=== PATIENT | female | born 1990 | race African-American/Black ===

== ENCOUNTER 2017-01-09 11:14 | Emergency (ER) | payer OTHER ==
[~2017-01-09] VITALS: Ht 165.1 cm; Wt 180.0 kg
[2017-01-09] MEDS ORDERED: NAPROSYN500 MG PO (14:47)
[2017-01-09] MEDS ORDERED: FLEXERIL PO (14:47)
[2017-01-09 15:00] VITALS: BP 151/105
== END 2017-01-09 15:16 | disposition home or self-care (01) | DRG 552 ==
LOC: ED 11:14
DX: M47.816 Spondylosis without myelopathy or radiculopathy, lumbar region (principal); F17.210 Nicotine dependence, cigarettes, uncomplicated; R07.9 Chest pain, unspecified

== ENCOUNTER 2017-01-12 00:49 | Emergency (ER) | payer OTHER ==
[~2017-01-12] VITALS: Ht 165.1 cm; Wt 200.0 kg
[~2017-01-12 00:49] MED LIST: FLEXERIL PO; NAPROSYN500 MG PO
[2017-01-12 01:37] LABS: HEMATOCRIT 32.5 % (37.0-47.0); HEMOGLOBIN 9.8 g/dl (12.0-16.0); IMMATURE GRANULOCYTES 0.2 % (0.0-1.0); MEAN CELL VOLUME 75.1 fL CALC (80.0-100.0); MEAN CORPUSCULAR HGB 22.6 pG CALC (26.0-32.0); MEAN CORPUSCULAR HGB CONC 30.2 g/L CALC (32.0-36.0); NEUT# 2.53 thou/uL (2.00-7.15); RED BLOOD COUNT 4.33 mill/uL (4.20-5.60); RED CELL DISTRI WIDTH 16.5 % (11.5-15.5)
[2017-01-12 01:46] LABS: ALBUMIN 3.6 g/dL (3.2-5.0); ALKALINE PHOSPHATASE 77 u/l (38-126); AMYLASE 79 u/l (30-110); ANION GAP 13 (6-22 (CALC)); BILIRUBIN, TOTAL 0.3 mg/dL (0.0-1.4); BUN 17 mg/dL (7-17); BUN/CREATININE RATIO 16 (12-20 (CALC)); CALCIUM 8.7 mg/dL (8.4-10.2); CARBON DIOXIDE 27 mmol/l (22-30); CHLORIDE 104 mmol/l (95-108); CREATININE 1.1 mg/dL (0.5-1.0); GFR > 60 ML/MIN (>=60 (CALC)); GFR FOR AFR.AMER. > 60 ML/MIN (>=60 (CALC)); GLUCOSE 89 mg/dL (65-105); LIPASE 88 u/l (23-300); POTASSIUM 4.5 mmol/l (3.5-5.1); SGOT/AST 28 u/l (14-36); SGPT/ALT 25 u/l (9-52); SODIUM 141 mmol/l (137-146); TOTAL PROTEIN 7.6 g/dL (6.3-8.2)
[2017-01-12 01:58] LABS: MYOGLOBIN 22 ng/mL (0 - 62)
[2017-01-12 02:40] LABS: URINE BILIRUBIN - DIPSTICK NEGATIVE (NEGATIVE); URINE BLOOD DIPSTICK NEGATIVE (NEGATIVE); URINE CLARITY SLIGHT CLOUDY; URINE COLOR YELLOW; URINE GLUCOSE - DIPSTICK NEGATIVE (NEGATIVE); URINE KETONE NEGATIVE (NEGATIVE); URINE LEUK ESTERASE NEGATIVE (NEGATIVE); URINE NITRITE - DIPSTICK NEGATIVE (Negative); URINE PROTEIN - DIPSTICK NEGATIVE (NEG-TRACE); URINE SPECIFIC GRAVITY 1.025; URINE UROBILINOGEN - DIPSTICK 0.2 E.U./dL (0.2)
[2017-01-12 02:49] VITALS: BP 124/63
== END 2017-01-12 02:50 | disposition home or self-care (01) | DRG 313 ==
LOC: ED 00:49
PROVIDERS: Emergency Medicine
DX: R07.89 Other chest pain (principal); F17.200 Nicotine dependence, unspecified, uncomplicated

== ENCOUNTER 2017-03-11 15:00 | Emergency (ER) | payer OTHER ==
[~2017-03-11] VITALS: Ht 165.1 cm; Wt 180.0 kg
[2017-03-11] MEDS ORDERED: FLEXERIL PO (17:41)
[2017-03-11] MEDS ORDERED: ULTRAM50 M1 PO (17:41)
[2017-03-11 17:45] VITALS: BP 129/74
== END 2017-03-11 17:45 | disposition home or self-care (01) | DRG 563 ==
LOC: ED 15:00
DX: S43.402A Unspecified sprain of left shoulder joint, initial encounter (principal); M25.512 Pain in left shoulder

== ENCOUNTER 2017-05-15 07:13 | Emergency (ER) | payer OTHER ==
[~2017-05-15] VITALS: Ht 165.1 cm; Wt 150.0 kg
[~2017-05-15 07:13] MED LIST changes: +ULTRAM50 M1 PO
[2017-05-15] MEDS ORDERED: MOTRIN800 MG PO (07:42)
[2017-05-15 07:58] VITALS: BP 118/70
== END 2017-05-15 08:02 | disposition home or self-care (01) | DRG 153 ==
LOC: ED 07:13
DX: J02.9 Acute pharyngitis, unspecified (principal)
CPT/HCPCS: J0561

== ENCOUNTER 2017-05-17 14:35 | Emergency (ER) | payer OTHER ==
[~2017-05-17] VITALS: Ht 165.1 cm; Wt 150.0 kg
[~2017-05-17 14:35] MED LIST changes: +MOTRIN800 MG PO
[2017-05-17 16:26] LABS: HEMATOCRIT 34.4 % (37.0-47.0); HEMOGLOBIN 10.5 g/dl (12.0-16.0); IMMATURE GRANULOCYTES 0.3 % (0.0-1.0); MEAN CELL VOLUME 76.6 fL CALC (80.0-100.0); MEAN CORPUSCULAR HGB 23.4 pG CALC (26.0-32.0); MEAN CORPUSCULAR HGB CONC 30.5 g/L CALC (32.0-36.0); NEUT# 4.53 thou/uL (2.00-7.15); RED BLOOD COUNT 4.49 mill/uL (4.20-5.60); RED CELL DISTRI WIDTH 17.6 % (11.5-15.5)
[2017-05-17 17:41] LABS: ALBUMIN 3.5 g/dL (3.2-5.0); ALKALINE PHOSPHATASE 75 u/l (38-126); ANION GAP 14 (6-22 (CALC)); BILIRUBIN, TOTAL 0.2 mg/dL (0.0-1.4); BUN 10 mg/dL (7-17); BUN/CREATININE RATIO 12 (12-20 (CALC)); CALCIUM 8.9 mg/dL (8.4-10.2); CARBON DIOXIDE 29 mmol/l (22-30); CHLORIDE 102 mmol/l (95-108); CREATININE 0.9 mg/dL (0.5-1.0); GFR > 60 ML/MIN (>=60 (CALC)); GFR FOR AFR.AMER. > 60 ML/MIN (>=60 (CALC)); GLUCOSE 86 mg/dL (65-105); POTASSIUM 4.3 mmol/l (3.5-5.1); SGOT/AST 21 u/l (14-36); SGPT/ALT 37 u/l (9-52); SODIUM 141 mmol/l (137-146); TOTAL PROTEIN 7.1 g/dL (6.3-8.2)
[2017-05-17] MEDS ORDERED: AMOX/K CLAV875 M1 PO (18:30)
[2017-05-17 18:55] VITALS: BP 126/72
== END 2017-05-17 19:03 | disposition home or self-care (01) | DRG 153 ==
LOC: ED 14:35
PROVIDERS: Emergency Medicine
DX: J02.0 Streptococcal pharyngitis (principal); R50.9 Fever, unspecified

== ENCOUNTER 2017-05-18 19:44 | Emergency (ER) | payer OTHER ==
[~2017-05-18] VITALS: Ht 165.1 cm; Wt 165.8 kg
[~2017-05-18 19:44] MED LIST changes: +AMOX/K CLAV875 M1 PO
[2017-05-18 21:00] VITALS: BP 139/84
== END 2017-05-18 21:00 | disposition home or self-care (01) | DRG 153 ==
LOC: ED 19:44
DX: J02.9 Acute pharyngitis, unspecified (principal); F17.210 Nicotine dependence, cigarettes, uncomplicated

== ENCOUNTER 2017-05-20 18:30 | Emergency (ER) | payer OTHER ==
[~2017-05-20] VITALS: Ht 165.1 cm; Wt 163.6 kg
[2017-05-20 19:27] LABS: HEMATOCRIT 37.4 % (37.0-47.0); HEMOGLOBIN 11.3 g/dl (12.0-16.0); IMMATURE GRANULOCYTES 0.6 % (0.0-1.0); MEAN CELL VOLUME 75.4 fL CALC (80.0-100.0); MEAN CORPUSCULAR HGB 22.8 pG CALC (26.0-32.0); MEAN CORPUSCULAR HGB CONC 30.2 g/L CALC (32.0-36.0); NEUT# 4.83 thou/uL (2.00-7.15); RED BLOOD COUNT 4.96 mill/uL (4.20-5.60); RED CELL DISTRI WIDTH 17.2 % (11.5-15.5)
[2017-05-20 19:59] LABS: ALBUMIN 3.8 g/dL (3.2-5.0); ALKALINE PHOSPHATASE 73 u/l (38-126); ANION GAP 15 (6-22 (CALC)); BILIRUBIN, TOTAL 0.4 mg/dL (0.0-1.4); BUN 11 mg/dL (7-17); BUN/CREATININE RATIO 13 (12-20 (CALC)); CARBON DIOXIDE 28 mmol/l (22-30); CHLORIDE 101 mmol/l (95-108); CREATININE 0.8 mg/dL (0.5-1.0); GFR > 60 ML/MIN (>=60 (CALC)); GFR FOR AFR.AMER. > 60 ML/MIN (>=60 (CALC)); GLUCOSE 88 mg/dL (65-105); POTASSIUM 3.8 mmol/l (3.5-5.1); SGOT/AST 20 u/l (14-36); SGPT/ALT 41 u/l (9-52); SODIUM 140 mmol/l (137-146); TOTAL PROTEIN 7.6 g/dL (6.3-8.2)
[2017-05-20] MEDS ORDERED: CLEOCIN300 MG PO (23:38)
[2017-05-21 00:05] VITALS: BP 151/84
== END 2017-05-21 00:05 | disposition home or self-care (01) | DRG 153 ==
LOC: ED 18:30
PROVIDERS: Emergency Medicine
DX: J03.00 Acute streptococcal tonsillitis, unspecified (principal); F17.210 Nicotine dependence, cigarettes, uncomplicated

== ENCOUNTER 2017-07-25 18:34 | Emergency (ER) | payer SELFPAY ==
[~2017-07-25] VITALS: Ht 165.1 cm; Wt 146.4 kg
[~2017-07-25 18:34] MED LIST changes: +CLEOCIN300 MG PO
[2017-07-25] MEDS ORDERED: ULTRAM50 M1 PO (20:16)
[2017-07-25 20:30] VITALS: BP 138/78
== END 2017-07-25 20:30 | disposition home or self-care (01) | DRG 563 ==
LOC: ED 18:34
DX: S43.402A Unspecified sprain of left shoulder joint, initial encounter (principal); S93.602A Unspecified sprain of left foot, initial encounter; F17.210 Nicotine dependence, cigarettes, uncomplicated; X58.XXXA Exposure to other specified factors, initial encounter

== ENCOUNTER 2017-09-09 23:01 | Emergency (ER) | payer SELFPAY ==
[~2017-09-09] VITALS: Ht 165.1 cm; Wt 156.2 kg
[~2017-09-09 23:01] MED LIST changes: +AMOXICILLIN500 MG PO
[2017-09-10 00:26] VITALS: BP 131/71
== END 2017-09-10 00:26 | disposition home or self-care (01) | DRG 153 ==
LOC: ED 23:01
DX: J03.90 Acute tonsillitis, unspecified (principal); F17.210 Nicotine dependence, cigarettes, uncomplicated

== ENCOUNTER 2017-10-31 15:02 | Emergency (ER) | payer SELFPAY ==
[~2017-10-31] VITALS: Ht 165.1 cm; Wt 170.0 kg
[2017-10-31 15:36] LABS: INFLUENZA A NONE DETECTED (NONE DETECT); INFLUENZA B NONE DETECTED (NONE DETECT)
[2017-10-31 16:43] LABS: HEMOGLOBIN 10.4 g/dl (12.0-16.0); IMMATURE GRANULOCYTES 0.2 % (0.0-1.0); MEAN CORPUSCULAR HGB 23.9 pG CALC (26.0-32.0); MEAN CORPUSCULAR HGB CONC 30.6 g/L CALC (32.0-36.0); NEUT# 2.63 thou/uL (2.00-7.15); RED BLOOD COUNT 4.36 mill/uL (4.20-5.60); RED CELL DISTRI WIDTH 17.2 % (11.5-15.5)
[2017-10-31 16:58] LABS: ALKALINE PHOSPHATASE 90 u/l (38-126); ANION GAP 17 (6-22 (CALC)); BILIRUBIN, TOTAL 0.2 mg/dL (0.0-1.4); BUN 12 mg/dL (7-17); BUN/CREATININE RATIO 12 (12-20 (CALC)); CARBON DIOXIDE 25 mmol/l (22-30); CHLORIDE 105 mmol/l (95-108); GFR > 60 ML/MIN (>=60 (CALC)); GFR FOR AFR.AMER. > 60 ML/MIN (>=60 (CALC)); LIPASE 115 u/l (23-300); POTASSIUM 4.6 mmol/l (3.5-5.1); SGOT/AST 20 u/l (14-36); SGPT/ALT 24 u/l (9-52); SODIUM 143 mmol/l (137-146); TOTAL PROTEIN 7.5 g/dL (6.3-8.2)
[2017-10-31 18:42] VITALS: BP 120/74
== END 2017-10-31 18:45 | disposition home or self-care (01) | DRG 103 ==
LOC: ED 15:02
PROVIDERS: Family Medicine
DX: R51 Headache (principal); F17.200 Nicotine dependence, unspecified, uncomplicated; R10.9 Unspecified abdominal pain; R11.0 Nausea; R61 Generalized hyperhidrosis

== ENCOUNTER 2017-12-02 18:46 | Emergency (ER) | payer SELFPAY ==
[~2017-12-02] VITALS: Ht 165.1 cm; Wt 158.4 kg
[2017-12-02 19:47] VITALS: BP 145/85
[2017-12-02] MEDS ORDERED: MEDDOSEPAK PO (19:50)
== END 2017-12-02 20:05 | disposition home or self-care (01) | DRG 607 ==
LOC: ED 18:46
DX: L23.9 Allergic contact dermatitis, unspecified cause (principal); L29.9 Pruritus, unspecified; R11.0 Nausea; R50.9 Fever, unspecified

== ENCOUNTER 2018-02-01 08:16 | Emergency (ER) | payer SELFPAY ==
[~2018-02-01] VITALS: Ht 165.1 cm; Wt 170.0 kg
[~2018-02-01 08:16] MED LIST changes: +MEDDOSEPAK PO
[2018-02-01 09:17] LABS: HEMATOCRIT 34.6 % (37.0-47.0); HEMOGLOBIN 10.5 g/dl (12.0-16.0); IMMATURE GRANULOCYTES 0.2 % (0.0-1.0); MEAN CELL VOLUME 78.3 fL CALC (80.0-100.0); MEAN CORPUSCULAR HGB 23.8 pG CALC (26.0-32.0); MEAN CORPUSCULAR HGB CONC 30.3 g/L CALC (32.0-36.0); NEUT# 2.98 thou/uL (2.00-7.15); RED BLOOD COUNT 4.42 mill/uL (4.20-5.60); RED CELL DISTRI WIDTH 15.5 % (11.5-15.5)
[2018-02-01 09:42] LABS: ANION GAP 14 (6-22 (CALC)); BUN 11 mg/dL (7-17); BUN/CREATININE RATIO 12 (12-20 (CALC)); CARBON DIOXIDE 27 mmol/l (22-30); CHLORIDE 104 mmol/l (95-108); CREATININE 0.9 mg/dL (0.5-1.0); GFR > 60 ML/MIN (>=60 (CALC)); GFR FOR AFR.AMER. > 60 ML/MIN (>=60 (CALC)); POTASSIUM 3.9 mmol/l (3.5-5.1); SODIUM 141 mmol/l (137-146)
[2018-02-01 10:01] VITALS: BP 141/87
== END 2018-02-01 10:08 | disposition home or self-care (01) | DRG 93 ==
LOC: ED 08:16
PROVIDERS: Family Medicine
DX: R20.2 Paresthesia of skin (principal); F17.210 Nicotine dependence, cigarettes, uncomplicated

== ENCOUNTER 2018-02-02 17:31 | Emergency (ER) | payer SELFPAY ==
[~2018-02-02] VITALS: Ht 165.1 cm; Wt 160.0 kg
[2018-02-02 18:14] VITALS: BP 126/64
== END 2018-02-02 18:14 | disposition home or self-care (01) | DRG 880 ==
LOC: ED 17:31
DX: F41.9 Anxiety disorder, unspecified (principal); F17.290 Nicotine dependence, other tobacco product, uncomplicated

== ENCOUNTER 2018-05-12 00:13 | Emergency (ER) | payer OTHER ==
[~2018-05-12] VITALS: Ht 165.1 cm; Wt 168.0 kg
[2018-05-12 01:49] VITALS: BP 137/86
== END 2018-05-12 01:53 | disposition home or self-care (01) | DRG 179 ==
LOC: ED 00:13
DX: R76.11 Nonspecific reaction to tuberculin skin test without active tuberculosis (principal); F17.210 Nicotine dependence, cigarettes, uncomplicated

== ENCOUNTER 2018-08-09 22:05 | Emergency (ER) | payer SELFPAY ==
[~2018-08-09] VITALS: Ht 167.6 cm; Wt 170.0 kg
[2018-08-09 22:59] LABS: HEMATOCRIT 36.1 % (37.0-47.0); HEMOGLOBIN 11.1 g/dl (12.0-16.0); IMMATURE GRANULOCYTES 0.4 % (0.0-5.0); MEAN CELL VOLUME 80.2 fL CALC (80.0-100.0); MEAN CORPUSCULAR HGB 24.7 pG CALC (26.0-32.0); MEAN CORPUSCULAR HGB CONC 30.7 g/L CALC (32.0-36.0); NEUT# 3.68 thou/uL (2.00-7.15); RED BLOOD COUNT 4.5 mill/uL (4.20-5.60); RED CELL DISTRI WIDTH 16.2 % (11.5-15.5)
[2018-08-09 23:11] LABS: ALBUMIN 3.6 g/dL (3.2-5.0); ALKALINE PHOSPHATASE 80 u/l (38-126); AMYLASE 125 u/l (30-110); ANION GAP 11 (6-22 (CALC)); BILIRUBIN, TOTAL 0.2 mg/dL (0.0-1.4); BUN 13 mg/dL (7-17); BUN/CREATININE RATIO 15 (12-20 (CALC)); CARBON DIOXIDE 24 mmol/l (22-30); CHLORIDE 109 mmol/l (95-108); CREATININE 0.8 mg/dL (0.5-1.0); GFR > 60 ML/MIN (>=60 (CALC)); GFR FOR AFR.AMER. > 60 ML/MIN (>=60 (CALC)); LIPASE 641 u/l (23-300); POTASSIUM 4.3 mmol/l (3.5-5.1); SGOT/AST 23 u/l (14-36); SODIUM 140 mmol/l (137-146); TOTAL PROTEIN 7.2 g/dL (6.3-8.2)
[2018-08-10 00:26] LABS: URINE BILIRUBIN - DIPSTICK NEGATIVE (NEGATIVE); URINE BLOOD DIPSTICK NEGATIVE (NEGATIVE); URINE CLARITY SL CLOUDY; URINE COLOR YELLOW; URINE GLUCOSE - DIPSTICK NEGATIVE (NEGATIVE); URINE KETONE TRACE mg/dL (NEGATIVE); URINE LEUK ESTERASE NEGATIVE (NEGATIVE); URINE NITRITE - DIPSTICK NEGATIVE (Negative); URINE PH 6.5 (4.5-8.0); URINE PROTEIN - DIPSTICK NEGATIVE (NEG-TRACE); URINE SPECIFIC GRAVITY 1.025; URINE UROBILINOGEN - DIPSTICK 0.2 E.U./dL (0.2)
[2018-08-10] MEDS ORDERED: ZOFRAN ODT8 MG PO (01:16)
[2018-08-10 01:25] VITALS: BP 144/91
== END 2018-08-10 01:25 | disposition home or self-care (01) | DRG 391 ==
LOC: ED 22:05
PROVIDERS: Family Medicine
DX: K52.9 Noninfective gastroenteritis and colitis, unspecified (principal); K85.90 Acute pancreatitis without necrosis or infection, unspecified; F17.290 Nicotine dependence, other tobacco product, uncomplicated

== ENCOUNTER 2018-10-02 12:50 | Emergency (ER) | payer BC ==
[~2018-10-02] VITALS: Ht 165.1 cm; Wt 185.0 kg
[~2018-10-02 12:50] MED LIST changes: +ZOFRAN ODT8 MG PO
[2018-10-02] MEDS ORDERED: MOTRIN400 MG PO (13:28)
[2018-10-02] MEDS ORDERED: CYCLOBENZAPRINE5 MG PO (13:28)
[2018-10-02 13:35] VITALS: BP 166/84
== END 2018-10-02 13:35 | disposition home or self-care (01) | DRG 552 ==
LOC: ED 12:50
DX: M62.830 Muscle spasm of back (principal); F17.210 Nicotine dependence, cigarettes, uncomplicated

== ENCOUNTER 2018-10-26 17:07 | Emergency (ER) | payer BC ==
[~2018-10-26] VITALS: Ht 165.1 cm; Wt 171.8 kg
[~2018-10-26 17:07] MED LIST changes: +CYCLOBENZAPRINE5 MG PO; +MOTRIN400 MG PO
[2018-10-26] MEDS ORDERED: AMOXICILLIN875 MG PO (18:03)
[2018-10-26 18:15] VITALS: BP 145/84
== END 2018-10-26 18:15 | disposition home or self-care (01) | DRG 153 ==
LOC: ED 17:07
DX: J02.0 Streptococcal pharyngitis (principal); F17.290 Nicotine dependence, other tobacco product, uncomplicated

== ENCOUNTER 2018-12-31 19:21 | Emergency (ER) | payer SELFPAY ==
[~2018-12-31] VITALS: Ht 165.1 cm; Wt 189.2 kg
[~2018-12-31 19:21] MED LIST changes: +AMOXICILLIN875 MG PO
[2018-12-31 21:01] LABS: URINE BILIRUBIN - DIPSTICK NEGATIVE (NEGATIVE); URINE BLOOD DIPSTICK NEGATIVE (NEGATIVE); URINE COLOR YELLOW; URINE GLUCOSE - DIPSTICK NEGATIVE (NEGATIVE); URINE KETONE NEGATIVE (NEGATIVE); URINE LEUK ESTERASE NEGATIVE (NEGATIVE); URINE NITRITE - DIPSTICK NEGATIVE (Negative); URINE PH 6.5 (4.5-8.0); URINE PROTEIN - DIPSTICK NEGATIVE (NEG-TRACE); URINE UROBILINOGEN - DIPSTICK 0.2 E.U./dL (0.2)
[2018-12-31 21:04] LABS: HEMATOCRIT 34.1 % (37.0-47.0); HEMOGLOBIN 9.9 g/dl (12.0-16.0); IMMATURE GRANULOCYTES 0.6 % (0.0-5.0); MEAN CELL VOLUME 77.7 fL CALC (80.0-100.0); MEAN CORPUSCULAR HGB 22.6 pG CALC (26.0-32.0); NEUT# 3.56 thou/uL (2.00-7.15); RED BLOOD COUNT 4.39 mill/uL (4.20-5.60); RED CELL DISTRI WIDTH 15.9 % (11.5-15.5)
[2018-12-31 21:11] LABS: ALBUMIN 3.6 g/dL (3.2-5.0); ALKALINE PHOSPHATASE 87 u/l (38-126); AMYLASE 57 u/l (30-110); ANION GAP 15 (6-22 (CALC)); BILIRUBIN, TOTAL 0.1 mg/dL (0.0-1.4); BUN 13 mg/dL (7-17); BUN/CREATININE RATIO 16 (12-20 (CALC)); CARBON DIOXIDE 26 mmol/l (22-30); CHLORIDE 105 mmol/l (95-108); CREATININE 0.8 mg/dL (0.5-1.0); GFR > 60 ML/MIN (>=60 (CALC)); GFR FOR AFR.AMER. > 60 ML/MIN (>=60 (CALC)); LIPASE 97 u/l (23-300); POTASSIUM 4.5 mmol/l (3.5-5.1); SGOT/AST 17 u/l (14-36); SODIUM 141 mmol/l (137-146); TOTAL PROTEIN 7.3 g/dL (6.3-8.2)
[2018-12-31 21:35] VITALS: BP 151/84
== END 2018-12-31 21:35 | disposition home or self-care (01) | DRG 761 ==
LOC: ED 19:21
PROVIDERS: Emergency Medicine
DX: N93.8 Other specified abnormal uterine and vaginal bleeding (principal); F17.290 Nicotine dependence, other tobacco product, uncomplicated

== ENCOUNTER 2019-03-08 21:12 | Emergency (ER) | payer OTHER ==
[~2019-03-08] VITALS: Ht 167.6 cm; Wt 188.2 kg
[2019-03-08] MEDS ORDERED: ZOLOFT50 MG PO (21:24)
[2019-03-08 22:08] LABS: HEMATOCRIT 33.8 % (37.0-47.0); HEMOGLOBIN 9.8 g/dl (12.0-16.0); IMMATURE GRANULOCYTES 0.5 % (0.0-5.0); MEAN CELL VOLUME 73.8 fL CALC (80.0-100.0); MEAN CORPUSCULAR HGB 21.4 pG CALC (26.0-32.0); NEUT# 4.38 thou/uL (2.00-7.15); RED BLOOD COUNT 4.58 mill/uL (4.20-5.60); RED CELL DISTRI WIDTH 17.4 % (11.5-15.5)
[2019-03-08 22:56] LABS: ALBUMIN 3.8 g/dL (3.2-5.0); ALKALINE PHOSPHATASE 91 u/l (38-126); AMYLASE 69 u/l (30-110); ANION GAP 15 (6-22 (CALC)); BILIRUBIN, TOTAL 0.2 mg/dL (0.0-1.4); BUN 12 mg/dL (7-17); BUN/CREATININE RATIO 13 (12-20 (CALC)); CARBON DIOXIDE 26 mmol/l (22-30); CHLORIDE 105 mmol/l (95-108); CREATININE 0.9 mg/dL (0.5-1.0); GFR > 60 ML/MIN (>=60 (CALC)); GFR FOR AFR.AMER. > 60 ML/MIN (>=60 (CALC)); LIPASE 146 u/l (23-300); POTASSIUM 4.3 mmol/l (3.5-5.1); SGOT/AST 22 u/l (14-36); SODIUM 141 mmol/l (137-146); TOTAL PROTEIN 7.6 g/dL (6.3-8.2)
[2019-03-08 23:00] VITALS: BP 142/77
[2019-03-08] MEDS ORDERED: AMOXICILLIN500 MG PO (23:09)
[2019-03-08] MEDS ORDERED: PHENERGAN25 MG/TAB PO (23:09)
== END 2019-03-08 23:24 | disposition home or self-care (01) | DRG 153 ==
LOC: ED 21:12
PROVIDERS: Family Medicine
DX: J02.0 Streptococcal pharyngitis (principal); K52.9 Noninfective gastroenteritis and colitis, unspecified; R50.9 Fever, unspecified; F17.210 Nicotine dependence, cigarettes, uncomplicated; R11.10 Vomiting, unspecified; R19.7 Diarrhea, unspecified

== ENCOUNTER 2019-03-27 15:03 | Emergency (ER) | payer OTHER ==
[~2019-03-27] VITALS: Ht 167.6 cm; Wt 189.0 kg
[~2019-03-27 15:03] MED LIST changes: +PHENERGAN25 MG/TAB PO; +ZOLOFT50 MG PO
[2019-03-27] MEDS ORDERED: FLEXERIL PO (15:34)
[2019-03-27 16:09] LABS: HEMATOCRIT 32.2 % (37.0-47.0); HEMOGLOBIN 9.3 g/dl (12.0-16.0); IMMATURE GRANULOCYTES 0.4 % (0.0-5.0); MEAN CELL VOLUME 73.5 fL CALC (80.0-100.0); MEAN CORPUSCULAR HGB 21.2 pG CALC (26.0-32.0); MEAN CORPUSCULAR HGB CONC 28.9 g/L CALC (32.0-36.0); NEUT# 4.66 thou/uL (2.00-7.15); RED BLOOD COUNT 4.38 mill/uL (4.20-5.60); RED CELL DISTRI WIDTH 17.7 % (11.5-15.5)
[2019-03-27 16:22] LABS: BUN 9 mg/dL (7-17); BUN/CREATININE RATIO 10 (12-20 (CALC)); CARBON DIOXIDE 27 mmol/l (22-30); CHLORIDE 106 mmol/l (95-108); GFR > 60 ML/MIN (>=60 (CALC)); GFR FOR AFR.AMER. > 60 ML/MIN (>=60 (CALC)); SODIUM 142 mmol/l (137-146)
[2019-03-27 16:24] LABS: ANION GAP 13 (6-22 (CALC)); POTASSIUM 4.2 mmol/l (3.5-5.1)
[2019-03-27 18:05] VITALS: BP 141/75
== END 2019-03-27 18:05 | disposition home or self-care (01) | DRG 103 ==
LOC: ED 15:03
PROVIDERS: Family Medicine
DX: G43.909 Migraine, unspecified, not intractable, without status migrainosus (principal); F17.200 Nicotine dependence, unspecified, uncomplicated

== ENCOUNTER 2019-05-18 09:53 | Emergency (ER) | payer OTHER ==
[~2019-05-18] VITALS: Ht 167.6 cm; Wt 194.5 kg
[2019-05-18 11:26] LABS: URINE BILIRUBIN - DIPSTICK NEGATIVE (NEGATIVE); URINE BLOOD DIPSTICK NEGATIVE (NEGATIVE); URINE COLOR YELLOW; URINE GLUCOSE - DIPSTICK NEGATIVE (NEGATIVE); URINE KETONE NEGATIVE (NEGATIVE); URINE LEUK ESTERASE NEGATIVE (NEGATIVE); URINE NITRITE - DIPSTICK NEGATIVE (Negative); URINE PROTEIN - DIPSTICK NEGATIVE (NEG-TRACE); URINE UROBILINOGEN - DIPSTICK 0.2 E.U./dL (0.2)
[2019-05-18 11:33] LABS: HCG SERUM/URINE (NEG/POS) NEGATIVE (NEGATIVE)
[2019-05-18 11:40] LABS: HEMATOCRIT 28.6 % (37.0-47.0); IMMATURE GRANULOCYTES 0.4 % (0.0-5.0); MEAN CELL VOLUME 71.5 fL CALC (80.0-100.0); NEUT# 4.17 thou/uL (2.00-7.15); RED CELL DISTRI WIDTH 17.5 % (11.5-15.5)
[2019-05-18 12:02] LABS: ALBUMIN 3.7 g/dL (3.2-5.0); ALKALINE PHOSPHATASE 86 u/l (38-126); ANION GAP 14 (6-22 (CALC)); BILIRUBIN, TOTAL 0.2 mg/dL (0.0-1.4); BUN 12 mg/dL (7-17); BUN/CREATININE RATIO 17 (12-20 (CALC)); CARBON DIOXIDE 27 mmol/l (22-30); CHLORIDE 104 mmol/l (95-108); CREATININE 0.7 mg/dL (0.5-1.0); GFR > 60 ML/MIN (>=60 (CALC)); GFR FOR AFR.AMER. > 60 ML/MIN (>=60 (CALC)); LIPASE 73 u/l (23-300); POTASSIUM 4.3 mmol/l (3.5-5.1); SGOT/AST 18 u/l (14-36); SODIUM 141 mmol/l (137-146); TOTAL PROTEIN 7.4 g/dL (6.3-8.2)
[2019-05-18] MEDS ORDERED: AMOXICILLIN500 MG PO (12:46)
[2019-05-18] MEDS ORDERED: ZOFRAN4 M1 PO (12:46)
[2019-05-18 13:20] VITALS: BP 156/96
== END 2019-05-18 13:20 | disposition home or self-care (01) | DRG 153 ==
LOC: ED 09:53
PROVIDERS: Emergency Medicine
DX: J02.0 Streptococcal pharyngitis (principal); D64.9 Anemia, unspecified
CPT/HCPCS: Q9967

== ENCOUNTER 2019-10-15 | Emergency (ER) | payer OTHER ==
[~2019-10-15] MED LIST changes: +ZOFRAN4 M1 PO
[2019-10-15] MEDS ORDERED: AMOXICILLIN500 M2 PO (16:35)
== END 2019-10-15 16:45 | disposition home or self-care (01) | DRG 153 ==
DX: J02.0 Streptococcal pharyngitis (principal)

== ENCOUNTER 2019-10-31 | Emergency (ER) | payer OTHER ==
[~2019-10-31] MED LIST changes: +AMOXICILLIN500 M2 PO
[2019-10-31 21:39] LABS: HEMATOCRIT 27.9 % (37.0-47.0); HEMOGLOBIN 7.8 g/dl (12.0-16.0); IMMATURE GRANULOCYTES 0.4 % (0.0-5.0); MEAN CELL VOLUME 65.6 fL CALC (80.0-100.0); MEAN CORPUSCULAR HGB 18.4 pG CALC (26.0-32.0); NEUT# 4.29 thou/uL (2.00-7.15); RED BLOOD COUNT 4.25 mill/uL (4.20-5.60); RED CELL DISTRI WIDTH 20.5 % (11.5-15.5)
[2019-10-31 21:51] LABS: ALBUMIN 3.9 g/dL (3.2-5.0); ALKALINE PHOSPHATASE 83 u/l (38-126); AMYLASE 90 u/l (30-110); ANION GAP 14 (6-22 (CALC)); BUN 11 mg/dL (7-17); BUN/CREATININE RATIO 16 (12-20 (CALC)); CARBON DIOXIDE 24 mmol/l (22-30); CHLORIDE 104 mmol/l (95-108); CREATININE 0.7 mg/dL (0.5-1.0); GFR > 60 ML/MIN (>=60 (CALC)); GFR FOR AFR.AMER. > 60 ML/MIN (>=60 (CALC)); LIPASE 80 u/l (23-300); POTASSIUM 3.9 mmol/l (3.5-5.1); SGOT/AST 28 u/l (14-36); SODIUM 138 mmol/l (137-146); TOTAL PROTEIN 8.1 g/dL (6.3-8.2)
[2019-10-31 21:52] LABS: BILIRUBIN, TOTAL 0.3 mg/dL (0.0-1.4)
[2019-10-31] MEDS ORDERED: PHENERGAN25 MG/TAB PO (23:10)
[2019-10-31] MEDS ORDERED: FERR SULFATE325 MG PO (23:10)
== END 2019-10-31 23:30 | disposition home or self-care (01) | DRG 392 ==
PROVIDERS: Family Medicine
DX: A08.4 Viral intestinal infection, unspecified (principal); D64.9 Anemia, unspecified
CPT/HCPCS: Q9967

== ENCOUNTER 2019-11-22 | Emergency (ER) | payer OTHER ==
[~2019-11-22] MED LIST changes: +FERR SULFATE325 MG PO
[2019-11-22 11:51] LABS: URINE BILIRUBIN - DIPSTICK NEGATIVE (NEGATIVE); URINE BLOOD DIPSTICK LARGE (NEGATIVE); URINE COLOR YELLOW; URINE GLUCOSE - DIPSTICK NEGATIVE (NEGATIVE); URINE KETONE NEGATIVE (NEGATIVE); URINE LEUK ESTERASE NEGATIVE (NEGATIVE); URINE NITRITE - DIPSTICK NEGATIVE (Negative); URINE PROTEIN - DIPSTICK NEGATIVE (NEG-TRACE); URINE RBC TNTC RBC/hpf (0-5); URINE SQUAMOUS EPITHELIAL CELL FEW EPI/hpf (0-FEW); URINE UROBILINOGEN - DIPSTICK 0.2 E.U./dL (0.2)
[2019-11-22] MEDS ORDERED: AMOXICILLIN875 MG PO (13:25)
== END 2019-11-22 13:30 | disposition home or self-care (01) | DRG 153 ==
DX: J02.0 Streptococcal pharyngitis (principal)

== ENCOUNTER 2019-11-27 | Emergency (ER) | payer OTHER ==
[2019-11-27] MEDS ORDERED: ZPAK PO (07:46)
== END 2019-11-27 08:25 | disposition home or self-care (01) | DRG 153 ==
DX: J02.0 Streptococcal pharyngitis (principal)
CPT/HCPCS: J0561; J2540

== ENCOUNTER 2020-05-26 13:05 | Emergency (ER) | payer OTHER ==
[~2020-05-26] VITALS: Ht 167.6 cm; Wt 185.9 kg
[~2020-05-26 13:05] MED LIST changes: +ZPAK PO
[2020-05-26 13:47] LABS: HEMATOCRIT 26.8 % (37.0-47.0); IMMATURE GRANULOCYTES 0.3 % (0.0-5.0); MEAN CORPUSCULAR HGB 15.3 pG CALC (26.0-32.0); NEUT# 3.11 thou/uL (2.00-7.15); RED BLOOD COUNT 4.39 mill/uL (4.20-5.60); RED CELL DISTRI WIDTH 23.2 % (11.5-15.5)
[2020-05-26 14:01] LABS: HEMOGLOBIN 6.7 g/dl (12.0-16.0)
[2020-05-26 14:04] LABS: ALBUMIN 3.8 g/dL (3.2-5.0); ALKALINE PHOSPHATASE 91 u/l (38-126); ANION GAP 12 (6-22 (CALC)); BILIRUBIN, TOTAL 0.3 mg/dL (0.0-1.4); BUN 9 mg/dL (7-17); BUN/CREATININE RATIO 13 (12-20 (CALC)); CARBON DIOXIDE 26 mmol/l (22-30); CHLORIDE 104 mmol/l (95-108); CREATININE 0.7 mg/dL (0.5-1.0); GFR > 60 ML/MIN (>=60 (CALC)); GFR FOR AFR.AMER. > 60 ML/MIN (>=60 (CALC)); POTASSIUM 4.2 mmol/l (3.5-5.1); SGOT/AST 16 u/l (14-36); SODIUM 137 mmol/l (137-146); TOTAL PROTEIN 7.4 g/dL (6.3-8.2)
[2020-05-26 14:21] LABS: URINE BILIRUBIN - DIPSTICK NEGATIVE (NEGATIVE); URINE BLOOD DIPSTICK SMALL (NEGATIVE); URINE COLOR YELLOW; URINE GLUCOSE - DIPSTICK NEGATIVE (NEGATIVE); URINE KETONE NEGATIVE (NEGATIVE); URINE LEUK ESTERASE NEGATIVE (NEGATIVE); URINE NITRITE - DIPSTICK NEGATIVE (Negative); URINE PH 5.5 (4.5-8.0); URINE PROTEIN - DIPSTICK NEGATIVE (NEG-TRACE); URINE SPECIFIC GRAVITY >=1.030; URINE UROBILINOGEN - DIPSTICK 0.2 E.U./dL (0.2)
[2020-05-26 14:32] LABS: URINE SQUAMOUS EPITHELIAL CELL FEW EPI/hpf (0-FEW)
[2020-05-26 15:45] VITALS: BP 125/94
[2020-05-26 16:07] VITALS: BP 146/70
[2020-05-26 17:10] VITALS: BP 139/63
[2020-05-26 18:58] VITALS: BP 137/62
[2020-05-26 19:30] LABS: HEMATOCRIT 27.9 % (37.0-47.0); HEMOGLOBIN 7.2 g/dl (12.0-16.0)
== END 2020-05-26 20:10 | disposition home or self-care (01) | DRG 812 ==
LOC: ED 13:05
PROVIDERS: Family Medicine
PROC: 30233N1 Transfusion of Nonautologous Red Blood Cells into Peripheral Vein, Percutaneous Approach (ICD-10-PCS; principal; 2020-05-26)
DX: D64.9 Anemia, unspecified (principal); R44.1 Visual hallucinations; F32.9 Major depressive disorder, single episode, unspecified
CPT/HCPCS: P9016

== ENCOUNTER 2020-05-27 08:48 | Emergency (ER) | payer OTHER ==
[~2020-05-27] VITALS: Ht 167.6 cm; Wt 189.0 kg
[2020-05-27 09:34] LABS: HEMATOCRIT 29.6 % (37.0-47.0); HEMOGLOBIN 7.7 g/dl (12.0-16.0); IMMATURE GRANULOCYTES 0.2 % (0.0-5.0); MEAN CELL VOLUME 63.2 fL CALC (80.0-100.0); MEAN CORPUSCULAR HGB 16.5 pG CALC (26.0-32.0); NEUT# 5.45 thou/uL (2.00-7.15); RED BLOOD COUNT 4.68 mill/uL (4.20-5.60)
[2020-05-27 10:09] VITALS: BP 145/79
== END 2020-05-27 10:09 | disposition home or self-care (01) | DRG 812 ==
LOC: ED 08:48
PROVIDERS: Family Medicine
DX: D64.9 Anemia, unspecified (principal)

== ENCOUNTER 2020-09-05 07:02 | Emergency (ER) | payer OTHER ==
[~2020-09-05] VITALS: Ht 167.6 cm; Wt 195.0 kg
[2020-09-05] MEDS ORDERED: ALL DAY10 MG PO (09:20)
[2020-09-05 09:23] VITALS: BP 152/76
--- NOTE | 2020-09-07 10:58 | NUR ---
Patient called for Covid results. Advised patient of negative results. Patient denies symptoms at this time. Encouraged patient to continue with Covid prevention. Patient verbalized understanding.
== END 2020-09-05 09:27 | disposition home or self-care (01) | DRG 153 ==
LOC: ED 07:02
DX: J30.2 Other seasonal allergic rhinitis (principal); E66.01 Morbid (severe) obesity due to excess calories; F32.9 Major depressive disorder, single episode, unspecified; Z20.828 Contact with and (suspected) exposure to other viral communicable diseases

== ENCOUNTER 2020-10-13 16:55 | Emergency (ER) | payer OTHER ==
[~2020-10-13] VITALS: Ht 167.6 cm; Wt 187.0 kg
[~2020-10-13 16:55] MED LIST changes: +ALL DAY10 MG PO
[2020-10-13 20:32] LABS: HEMATOCRIT 30.9 % (37.0-47.0); HEMOGLOBIN 8.1 g/dl (12.0-16.0); IMMATURE GRANULOCYTES 0.6 % (0.0-5.0); MEAN CELL VOLUME 63.4 fL CALC (80.0-100.0); MEAN CORPUSCULAR HGB 16.6 pG CALC (26.0-32.0); MEAN CORPUSCULAR HGB CONC 26.2 g/dL CAL (32.0-36.0); NEUT# 5.5 thou/uL (2.00-7.15); RED BLOOD COUNT 4.87 mill/uL (4.20-5.60); RED CELL DISTRI WIDTH 21.1 % (11.5-15.5)
[2020-10-13 20:45] LABS: ALBUMIN 4.2 g/dL (3.2-5.0); ALKALINE PHOSPHATASE 87 u/l (38-126); AMYLASE 78 u/l (30-110); ANION GAP 13 (6-22 (CALC)); BILIRUBIN, TOTAL 0.4 mg/dL (0.0-1.4); BUN 8 mg/dL (7-17); BUN/CREATININE RATIO 9 (12-20 (CALC)); CARBON DIOXIDE 25 mmol/l (22-30); CHLORIDE 104 mmol/l (95-108); CREATININE 0.8 mg/dL (0.5-1.0); GFR > 60 ML/MIN (>=60 (CALC)); GFR FOR AFR.AMER. > 60 ML/MIN (>=60 (CALC)); LIPASE 159 u/l (23-300); POTASSIUM 3.9 mmol/l (3.5-5.1); SGOT/AST 22 u/l (14-36); SODIUM 138 mmol/l (137-146); TOTAL PROTEIN 8.6 g/dL (6.3-8.2)
[2020-10-13] MEDS ORDERED: LOMOTIL2.5 MG PO (21:44)
[2020-10-13] MEDS ORDERED: PHENERGAN25 MG/TAB PO (21:44)
[2020-10-13 22:26] VITALS: BP 138/77
== END 2020-10-13 22:22 | disposition home or self-care (01) | DRG 392 ==
LOC: ED 16:55
PROVIDERS: Family Medicine
DX: A08.4 Viral intestinal infection, unspecified (principal); F32.9 Major depressive disorder, single episode, unspecified

== ENCOUNTER 2021-03-15 16:50 | Emergency (ER) | payer OTHER ==
[~2021-03-15] VITALS: Ht 167.6 cm; Wt 189.5 kg
[~2021-03-15 16:50] MED LIST changes: +LOMOTIL2.5 MG PO
[2021-03-15 18:14] VITALS: BP 148/88
== END 2021-03-15 18:15 | disposition home or self-care (01) | DRG 392 ==
LOC: ED 16:50
DX: R19.7 Diarrhea, unspecified (principal); R52 Pain, unspecified; F32.9 Major depressive disorder, single episode, unspecified; Z20.822 Contact with and (suspected) exposure to COVID-19

== ENCOUNTER 2021-05-17 16:34 | Emergency (ER) | payer OTHER ==
[~2021-05-17] VITALS: Ht 167.6 cm; Wt 185.4 kg
[2021-05-17 20:24] VITALS: BP 127/83
== END 2021-05-17 20:24 | disposition home or self-care (01) | DRG 392 ==
LOC: ED 16:34
DX: R11.10 Vomiting, unspecified (principal); R19.7 Diarrhea, unspecified; F32.9 Major depressive disorder, single episode, unspecified; E66.01 Morbid (severe) obesity due to excess calories; F17.200 Nicotine dependence, unspecified, uncomplicated; Z20.822 Contact with and (suspected) exposure to COVID-19

== ENCOUNTER 2021-12-08 21:18 | Emergency (ER) | payer OTHER ==
[~2021-12-08] VITALS: Ht 167.6 cm; Wt 185.0 kg
[2021-12-08] VITALS (7 sets, daily range): BP systolic 139–161; BP diastolic 77–94
[2021-12-08] MEDS ORDERED: AMOXICILLIN500 MG PO (22:13)
[2021-12-08] MEDS ORDERED: NAPROXEN500 MG PO (22:13)
== END 2021-12-08 22:43 | disposition home or self-care (01) | DRG 153 ==
LOC: ED 21:18
DX: J02.9 Acute pharyngitis, unspecified (principal); E66.01 Morbid (severe) obesity due to excess calories; F32.A Depression, unspecified; F17.200 Nicotine dependence, unspecified, uncomplicated; Z20.822 Contact with and (suspected) exposure to COVID-19

== ENCOUNTER 2022-06-14 10:25 | Emergency (ER) | payer OTHER ==
[~2022-06-14] VITALS: Ht 167.6 cm; Wt 210.9 kg
[~2022-06-14 10:25] MED LIST changes: +NAPROXEN500 MG PO
[2022-06-14 10:31] VITALS: BP 191/110
[2022-06-14 10:32] VITALS: BP 183/114
[2022-06-14 10:40] VITALS: BP 171/94
[2022-06-14 11:01] VITALS: BP 149/98
[2022-06-14 11:20] LABS: HEMATOCRIT 32.6 % (37.0-47.0); HEMOGLOBIN 9.5 g/dl (12.0-16.0); IMMATURE GRANULOCYTES 0.3 % (0.0-5.0); MEAN CORPUSCULAR HGB 20.6 pG CALC (26.0-32.0); MEAN CORPUSCULAR HGB CONC 29.1 g/dL CAL (32.0-36.0); NEUT# 5.02 thou/uL (2.00-7.15); RED BLOOD COUNT 4.61 mill/uL (4.20-5.60); RED CELL DISTRI WIDTH 19.5 % (11.5-15.5)
[2022-06-14 11:35] LABS: ALBUMIN 4.1 g/dL (3.2-5.0); ALKALINE PHOSPHATASE 98 u/l (38-126); ANION GAP 15 (6-22 (CALC)); BUN 13 mg/dL (7-17); BUN/CREATININE RATIO 16 (12-20 (CALC)); CARBON DIOXIDE 24 mmol/l (22-30); CHLORIDE 104 mmol/l (95-108); CREATININE 0.8 mg/dL (0.5-1.0); GFR FOR AFR.AMER. > 60 ML/MIN (>=60 (CALC)); GFR OTHER RACES > 60 ML/MIN (>=60 (CALC)); POTASSIUM 4.1 mmol/l (3.5-5.1); SGOT/AST 25 u/l (14-36); SODIUM 138 mmol/l (137-146)
[2022-06-14 11:42] LABS: MEAN CELL VOLUME 70.7 fL CALC (80.0-100.0)
[2022-06-14] MEDS ORDERED: ALL DAY10 MG PO (12:32)
[2022-06-14 12:45] VITALS: BP 149/98
== END 2022-06-14 12:54 | disposition home or self-care (01) | DRG 153 ==
LOC: ED 10:25
PROVIDERS: Family Medicine
DX: J02.9 Acute pharyngitis, unspecified (principal); N92.0 Excessive and frequent menstruation with regular cycle; E66.01 Morbid (severe) obesity due to excess calories; F32.A Depression, unspecified; Z20.822 Contact with and (suspected) exposure to COVID-19

== ENCOUNTER 2022-09-19 04:10 | Emergency (ER) | payer OTHER ==
[~2022-09-19] VITALS: Ht 167.6 cm; Wt 209.0 kg
[2022-09-19 04:18] VITALS: BP 157/96
[2022-09-19] MEDS ORDERED: TOPAMAX25 MG PO (04:30)
[2022-09-19] MEDS ORDERED: LOSARTAN POTASS25 MG PO (04:30)
[2022-09-19 05:22] VITALS: BP 157/96
== END 2022-09-19 05:25 | disposition home or self-care (01) | DRG 153 ==
LOC: ED 04:10
DX: J02.8 Acute pharyngitis due to other specified organisms (principal); Z20.822 Contact with and (suspected) exposure to COVID-19; H61.23 Impacted cerumen, bilateral